=== PATIENT | female | born 1985 | race Hispanic/Latino ===

== ENCOUNTER 2024-01-15 15:13 | Emergency (ER) | payer SELFPAY ==
--- NOTE | ~2024-01-15 | US_ITS ---
EXAMINATION: US OB <=14 wk fetus w TV INDICATION: vag bleed, TECHNIQUE: Sonography of the pelvis was performed by transabdominal and transvaginal techniques. COMPARISON: None. RESULT: Uterus: 9.9 x 5.0 x 5.3 cm. Anteverted. Rounded heterogeneous area in the lower uterine segment measu ring up to 1.4 cm which appears to be within the uterine parenchyma rather than within the endometria l cavity. Endometrial complex measures up to 6 mm and is slightly heterogeneous. Intrauterine gestational sac: Not seen. Subgestational hematoma: Absent . Right ovary: 3.4 x 2.3 x 2.1 cm. Vascular flow is present. 1.4 cm simple ovarian versus paraovaria n cyst. Left ovary: 2.4 x 1.7 x 1.8 cm. Vascular flow is present. No adnexal mass. Pelvis free fluid: Small volume free fluid. IMPRESSION: of unknown location. No intrauterine gestational sac identified. 1.4 cm round, heterogeneous area in the myometrium of the lower uterine segment, may represent a subm ucosal fibroid. Endometrial clot, polyp, or retained products considered less likely but remain in th e differential. No sonographic evidence of ectopic . Recommend sonographic follow-up and serial beta-hCG evaluation. Reviewed, dictated and finalized at location [facility]. IMPRESSION: of unknown location. No intrauterine gestational sac identified. 1.4 cm round, heterogeneous area in the myometrium of the lower uterine segment , may represent a submucosal fibroid. Endometrial clot, polyp, or retained prod ucts considered less likely but remain in the differential. No sonographic evidence of ectopic . Recommend sonographic follow-up and serial beta-hCG evaluation.
[2024-01-15 16:16] LABS: Alanine Aminotransferase 33 U/L (6-35); Albumin Level 4.5 g/dL (3.5-5.1); Alkaline Phosphatase 45 U/L (38-126); Anion Gap 11 mmol/L (4-12); Aspartate Amino Transferase 32 U/L (14-36); Bilirubin,Total 0.5 mg/dL (0.2-1.3); Blood Urea Nitrogen 14 mg/dL (7-17); Calcium 9.3 mg/dL (8.4-10.2); Carbon Dioxide 25 mmol/L (22-30); Chloride 102 mmol/L (98-107); Estimated Glomerular Filt Rate > 60; Glucose 104 mg/dL (65-110); Potassium 3.7 mmol/L (3.4-5.0); Sodium 138 mmol/L (137-145)
[2024-01-15 16:31] LABS: Beta HCG Quantitative 156.77 mIU/ML
--- NOTE | 2024-01-15 17:07 | ED.PREGNANCY ---
HPI - General Chief complaint: Vaginal Bleeding <Omayra Rankin PA-C - Last Filed: 01/17/24 09:40> Stated complaint: VAG BLEED PREG <Omayra Rankin PA-C - Last Filed: 01/17/24 09:40> Time Seen by Provider: 01/15/24 17:07 <Omayra Rankin PA-C - Last Filed: 01/17/24 09:40> Focused HPI: This is a 38 year old that presents to the ER for vaginal bleeding. She had a positive test at home. Reports she is about 5 weeks by her last LMP. She started bleeding today. She does not currently have an OB. Denies fever, or vomiting. GENERAL: Well-appearing, well-nourished, and in no acute distress. HEAD: Normocephalic, atraumatic. CHEST: Clear to auscultation. ?No respiratory distress. HEART: Regular rate and rhythm.? NEURO: ?Alert and oriented x3. Patient screened in triage and initial orders placed.? ?Additional care and disposition to be based upon?diagnostic testing and treatment. <Omayra Rankin PA-C - Last Filed: 01/17/24 09:40> History of Present Illness HPI Narrative: 38-year-old female presents to the emergency department for vaginal spotting. She took a test at home which was positive. Agree with the HPI is obtained by the MLP above. Last menstrual period 12/07/2023. Patient is primary Chadian-speaking yarrow gatherer service was used. She describes no pain, nausea, vomiting, fever, chills, leg swelling. She was not intentionally trying to get , had very mild spotting today and came in today with a positive test. <Tez Ruby MD - Last Filed: 01/15/24 22:24> Related Data Allergies/Adverse reactions: Allergies Allergy/AdvReac Type Severity Reaction Status Date / Time No Known Allergies Allergy Unverified 09/19/17 12:28 <Omayra Rankin PA-C - Last Filed: 01/17/24 09:40> Review of Systems Review of Systems: As reviewed above in HPI <Tez Ruby MD - Last Filed: 01/15/24 22:24> All systems reviewed & are unremarkable except as noted in HPI and below <Omayra Rankin PA-C - Last Filed: 01/17/24 09:40> [facility] Past Medical History Medical History: Medical History (Updated 01/17/24 @ 09:39 by Omayra Rankin PA-C) No active medical problems <Omayra Rankin PA-C - Last Filed: 01/17/24 09:40> Social History Social History: Social History (Updated 01/17/24 @ 09:39 by Omayra Rankin PA-C) Substance use: never <Omayra Rankin PA-C - Last Filed: 01/17/24 09:40> Exam Narrative: GENERAL: [Well-appearing, well-nourished, and in no acute distress.] HEAD: [Normocephalic, atraumatic.] EYES: [PERRLA and EOMI.] ENT: Nares clear, no rhinorrhea or epistaxis. Mucous membranes moist. NECK: Supple. CHEST: [Clear to auscultation. No respiratory distress.] HEART: [Regular rate and rhythm]. No murmur heard. [Normal peripheral pulses.] ABDOMEN: [Soft, nondistended], [nontender], [No rigidity or guarding] EXTREMITIES: Normal range of motion. [No edema.] SKIN: Warm, dry, no rash. NEURO: [No focal deficits]. Alert and oriented [x3.] PSYCH: [Normal mood and affect.] <Tez Ruby MD - Last Filed: 01/15/24 22:24> Course Vital Signs Vital signs: Vital Signs Pulse Rate 84 01/15/24 18:06 Respiratory Rate 14 01/15/24 18:06 Blood Pressure 102/68 01/15/24 18:06 Pulse Oximetry 100 01/15/24 18:06 Temperature 97.3 F L 01/15/24 20:35 Pulse Rate 79 01/15/24 20:35 Respiratory Rate 18 01/15/24 20:35 Blood Pressure 102/63 01/15/24 20:35 Pulse Oximetry 100 01/15/24 20:35 <Omayra Rankin PA-C - Last Filed: 01/17/24 09:40> Vital Signs Pulse Rate 84 01/15/24 18:06 Respiratory Rate 14 01/15/24 18:06 Blood Pressure 102/68 01/15/24 18:06 Pulse Oximetry 100 01/15/24 18:06 Temperature 97.3 F L 01/15/24 20:35 Pulse Rate 79 01/15/24 20:35 Respiratory Rate 18 01/15/24 20:35 Blood Pressure 102/63 01/15/24 20:35
[2024-01-15 18:06] VITALS: BP 102/68; PULSE 84; RESP 14; O2SAT 100
[2024-01-15 18:18] LABS: Basophils Percent Auto 0.2 % (0.2-1.2); Eosinophils Absolute Auto 0.1 K/mm3 (0-0.3); Eosinophils Percent Auto 0.4 % (0-4.4); Hematocrit 39.6 % (37.0-47.0); Hemoglobin 13.5 g/dL (12.0-15.0); Immature Granulocyte Absolute 0.04 K/mm3 (0.00-0.031); Immature Granulocyte Percent A 0.4 % (0-0.5); Lymphocytes Absolute Auto 1.98 K/mm3 (0.9-3.2); Lymphocytes Percent Auto 17.6 % (18.3-44.2); Mean Corpuscular HGB Conc 34.1 g/dl (32-36); Mean Corpuscular Hemoglobin 29.7 pg (26-34); Mean Corpuscular Volume 87.2 fl (80-100); Mean Platelet Volume 10.4 fl (7.4-10.4); Monocytes Absolute Auto 0.8 K/mm3 (0.1-0.6); Monocytes Percent Auto 6.9 % (2.6-8.5); Neutrophils Absolute Auto 8.4 K/mm3 (1.3-6.7); Neutrophils Percent Auto 74.5 % (45.5-73.1); Platelet Count Result 261 k/mm3 (150-375); Red Blood Count 4.54 M/mm3 (4.2-5.4); Red Cell Distribution Width 13.4 % (11.5-14.5); White Blood Count 11.2 K/mm3 (4.5-10.0)
[2024-01-15 20:35] VITALS: BP 102/63; PULSE 79; RESP 18; TEMP 36.3; O2SAT 100
== END 2024-01-15 22:36 | disposition home or self-care (01) ==
PROVIDERS: Emergency Medicine; Emergency Provider Student in an Organized Health Care Education/Training Program; PCP Registered Nurse
DX: O46.91 Antepartum hemorrhage, unspecified, first trimester (principal); Z3A.00 Weeks of gestation of pregnancy not specified
CPT/HCPCS: 36415; 76801; 76817; 80053; 84702; 85025; 85461; 85610; 85730; 86850; 86900; 86901; 99284

== ENCOUNTER 2024-01-17 14:20 | Emergency (ER) | payer SELFPAY ==
[2024-01-17 14:57] VITALS: BP 130/68; PULSE 76; RESP 16; TEMP 36.5; O2SAT 100
[2024-01-17 16:37] LABS: Beta HCG Quantitative 22.89 mIU/ML
--- NOTE | 2024-01-17 17:21 | ED.PREGNANCY ---
HPI - General Chief complaint: Vaginal Bleeding Stated complaint: positive test, bleeding Time Seen by Provider: 01/17/24 15:51 History of Present Illness HPI Narrative: 38-year-old female presenting with vaginal bleeding. States that she was here a couple days ago for the same problem. Her test was positive and an ultrasound was performed. States that she was told to follow up to recheck her blood. She denies any new complaints. States that the vaginal bleeding has lessened. She has mild suprapubic pain. She has an appointment with her PCP next week. 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 Related Data Allergies Allergy/AdvReac Type Severity Reaction Status Date / Time No Known Allergies Allergy Unverified 01/17/24 15:00 Review of Systems Review of Systems: All systems reviewed & are unremarkable except as noted in HPI and below PMFSH Past Medical History Medical History No active medical problems Social History Social History Substance use: never Exam Narrative: GENERAL: Well-appearing, no acute distress HEAD: Normocephalic, atraumatic. EYES: PERRLA and EOMI. ENT: Mucous membranes moist. NECK: Supple. CHEST: No respiratory distress. HEART: Regular rate and rhythm ABDOMEN: Soft, nontender, nondistended EXTREMITIES: Normal range of motion. SKIN: Warm, dry, no rash. NEURO: Alert and oriented x3. PSYCH: Normal mood and affect. Course Vital Signs Vital signs: Vital Signs Temperature 97.7 F 01/17/24 14:57 Pulse Rate 76 01/17/24 14:57 Respiratory Rate 16 01/17/24 14:57 Blood Pressure 130/68 01/17/24 14:57 Pulse Oximetry 100 01/17/24 14:57 Oxygen Delivery Room Air 01/17/24 14:57 Temperature 97.9 F 01/17/24 17:50 Pulse Rate 81 01/17/24 17:50 Respiratory Rate 18 01/17/24 17:50 Blood Pressure 122/70 01/17/24 17:50 Pulse Oximetry 100 01/17/24 17:50 Oxygen Delivery Room Air 01/17/24 14:57 MDM - OB/Uterine Contractions MDM Narrative Medical decision making narrative: 38-year-old female presenting with vaginal bleeding. Vitals are stable. Exam remarkable for the above. She is advised to have repeat beta-hCG which is why she is here today. She denies any new complaints. HCG today is coming down as expected, it is 22.89 today. She is safe for outpatient management. Likely represents spontaneous . Appropriate return precautions given. Patient agreeable with this plan. Discharged in stable condition. Differential Diagnosis Differential diagnosis: Likely other (vaginal bleeding, early , spontaneous ) Medical Records Attestation: I reviewed the patient's medical records. Lab Data Attestation: I reviewed the patient's lab results. Labs: Lab Results 01/17/24 Range/Units 16:01 Beta HCG, Quant 22.89 mIU/ML Critical Care Time Critical Care Time Critical Care Time: No Discharge Plan Discharge Clinical Impression: Spontaneous in first trimester Patient Disposition: Home, Self-Care Condition: Stable Instructions: Antibiotic Form, Miscarriage (ED) Additional Instructions: La hormona del embarazo est? bajando jose se esperaba. Vincenzo un seguimiento estrecho con pierce PCP jose se michele?. Si pierce dolor o sangrado empeoran repentinamente o si se desarrollan otros s?ntomas preocupantes, regrese a la manas de emergencias. Patient Language: Yemeni Follow-up/Referrals: Ирина,MAGAN Cash [Primary Care Provider] -
[2024-01-17 17:50] VITALS: BP 122/70; PULSE 81; RESP 18; TEMP 36.6; O2SAT 100
== END 2024-01-17 17:52 | disposition home or self-care (01) ==
PROVIDERS: Physician Assistant; Emergency Provider Emergency Medicine; PCP Registered Nurse
DX: O03.9 Complete or unspecified spontaneous abortion without complication (principal)
CPT/HCPCS: 36415; 84702; 99283